=== PATIENT | male | born 1975 | race Caucasian/White ===

== ENCOUNTER 2017-08-27 16:24 | Emergency (ER) | payer BC ==
--- NOTE | 2017-08-27 17:17 | EDM.PDOC ---
ED HPI GENERAL MEDICAL PROBLEM - General Chief Complaint: Respiratory Problem Stated Complaint: PT HAS DIFFICULTY BREATHING Time Seen by Provider: 08/27/17 17:15 Source of Information: Reports: Patient History Limitations: Reports: No Limitations - History of Present Illness INITIAL COMMENTS - FREE TEXT/NARRATIVE: HISTORY AND PHYSICAL: []42-year-old male presenting with concerns over a slight cough difficulty breathing History of Present Illness: []Patient has been having difficulty for the last week and a half. Symptoms have worsened and he presented to the emergency department today History of walking pneumonia 4 years ago. He quit smoking after this occurrence Review of Systems: As per history of present illness and below otherwise all systems reviewed and negative. Past medical history: As per history of present illness and as reviewed below otherwise noncontributory. Surgical history: As per history of present illness and as reviewed below otherwise noncontributory. Social history: No reported history of drug or alcohol abuse. Family history: As per history of present illness and as reviewed below otherwise noncontributory. Physical exam: Alert and oriented male. Follows directions well. Answering questions in full sentences without any shortness of breath HEENT: Atraumatic, normocehpalic, pupils reactive, negative for conjunctival pallor or scleral icterus, mucous membranes moist, throat clear, neck supple, nontender, trachea midline. Lungs: Clear to auscultation, breath sounds equal bilaterally, chest non tender. Heart: S1S2, regular, negative for clicks, rubs, or JVD. Abdomen: Soft, nondistended, nontender. Negative for masses or hepatossplenmegaly. Negative for costovertebral tenderness. Pelvis: Stable nontender. Genitourinary: Deferred. Rectal: Deferred Extremities: Atraumatic, negative for cords or calf pain. Neurovascular unremarkable. Neuro: Awake, alert, oriented. Cranial nerves II through XII unremarkable. Cerebellum unremarkable. Motor and sensory unremarkable throughout. Exam nonfocal. Improved air exchange after nebulizer treatment given Diagnostics: [CBC CMP chest x-ray] Therapeutics: [DuoNeb] Impression: [Shortness of breath] Plan: [Discharged to home Pro-air inhaler ] Definitive disposition and diagnosis as appropriate pending reevaluation and review of above. body aches Pain Score (Numeric/FACES): 3 - Related Data Allergies Allergy/AdvReac Type Severity Reaction Status Date / Time Penicillins Allergy Other Verified 08/27/17 17:05 Sulfa (Sulfonamide Allergy Other Verified 08/27/17 17:05 Antibiotics) Home Meds: Home Meds Albuterol [Ventolin HFA] 1 gm INH Q4H #1 inhaler 08/27/17 [Rx] Past Medical History - Infectious Disease History Infectious Disease History: Reports: Chicken Pox - Past Surgical History GI Surgical History: Reports: EGD Social & Family History - Family History Family Medical History: Noncontributory - Tobacco Use Smoking Status *Q: Never Smoker Years of Tobacco use: 10 Second Hand Smoke Exposure: No - Caffeine Use Caffeine Use: Reports: Coffee - Alcohol Use Days Per Week of Alcohol Use: 2 Number of Drinks Per Day: 4 Total Drinks Per Week: 8 - Recreational Drug Use Recreational Drug Use: No ED ROS GENERAL - Review of Systems Review Of Systems: ROS reveals no pertinent complaints other than HPI. ED EXAM, GENERAL - Physical Exam Exam: See Below (See dictation) Course - Vital Signs Last Recorded V/S: Last Vital Signs Temp 37.1 C 08/27/17 17:02 Pulse 85 08/27/17 17:02 Resp 16 08/27/17 17:02 BP 123/81 08/27/17 17:02 Pulse Ox 94 L 08/27/17 17:02 - Orders/Labs/Meds Orders: Active Orders 24 hr Category Date Time Status RT Aerosol Therapy [RC] ASDIRECTED Care 08/27/17 17:40 Active Chest 2V [CR] Stat Exams 08/27/17 17:15 Taken Labs: Laboratory Tests 08/27/17 08/27/17 Range/Units 17:57 17:57 WBC 5.85 (4.0-11.0) K/uL RBC 5.25 (4.50-5.90) M/uL Hgb 16.4 (13.0-17.0) g/dL Hct 44.5 (38.0-50.0) % MCV 84.8 (80.0-98.0) fL MCH 31.2 (27.0-32.0) pg MCHC 36.9 (31.0-37.0) g/dL RDW Std Deviation 36.8 (28.0-62.0) fl RDW Coeff of Sumit 12 (11.0-15.0) % Plt Count 180 (150-400) K/uL MPV 11.00 (7.40-12.00) fL Neut % (Auto) 47.7 L (48.0-80.0) % Lymph % (Auto) 33.2 (16.0-40.0) % [place] % (Auto) 15.7 H (0.0-15.0) % Eos % (Auto) 2.7 (0.0-7.0) % Baso % (Auto) 0.7 (0.0-1.5) % Neut # (Auto) 2.8 (1.4-5.7) K/uL Lymph # (Auto) 1.9 (0.6-2.4) K/uL [place] # (Auto) 0.9 H (0.0-0.8) K/uL Eos # (Auto) 0.2 (0.0-0.7) K/uL Baso # (Auto) 0.0 (0.0-0.1) K/uL Nucleated RBC % 0.0 /100WBC Nucleated RBCs # 0 K/uL Sodium 139 (136-146) mmol/L Potassium 3.7 (3.5-5.1) mmol/L Chloride 104 (98-110) mmol/L Carbon Dioxide 24 (21-31) mmol/L BUN 16 (6.0-23.0) mg/dL Creatinine 1.0 (0.6-1.5) mg/dL Est Cr Clr Drug Dosing 104.58 mL/min Estimated GFR (MDRD) > 60.0 ml/min Glucose 91 (60-110) mg/dL Calcium 9.4 (8.8-10.8) mg/dL Total Bilirubin 0.4 (0.1-1.5) mg/dL AST 23 (5-40) IU/L ALT 40 (8-54) IU/L Alkaline Phosphatase 90 (40-150) Total Protein 7.4 (6.0-8.0) g/dL Albumin 4.7 (3.5-5.0) g/dL Globulin 2.7 (2.0-3.5) g/dL Albumin/Globulin Ratio 1.7 (1.3-2.8) Meds: Medications Discontinued Medications Generic Name Dose Route Start Last Admin Trade Name Freq PRN Reason Stop Dose Admin Albuterol/Ipratropium 3 ml 08/27/17 17:39 08/27/17 17:47 Duoneb 3.0-0.5 Mg/3 Ml NEB 08/27/17 17:40 3 ml ONETIME ONE Administration Departure - Departure Time of Disposition: 18:48 Disposition: Home, Self-Care 01 Condition: Good Clinical Impression: Mild shortness of breath - Discharge Information Prescriptions: Albuterol [Ventolin HFA] 1 gm INH Q4H #1 inhaler Referrals: PCP,None [Primary Care Provider] - Forms: ED Department Discharge Additional Instructions: The following information is given to patients seen in the emergency department who are being discharged to home. This information is to outline your options for follow-up care. We provide all patients seen in our emergency department with a follow-up referral. The need for follow-up, as well as the timing and circumstances, are variable depending upon the specifics of your emergency department visit. If you don't have a primary care physician on staff, we will provide you with a referral. We always advise you to contact your personal physician following an emergency department visit to inform them of the circumstance of the visit and for follow-up with them and/or the need for any referrals to a consulting specialist. The emergency department will also refer you to a specialist when appropriate. This referral assures that you have the opportunity for followup care with a specialist. All of these measure are taken in an effort to provide you with optimal care, which includes your followup. Under all circumstances we always encourage you to contact your private physician who remains a resource for coordinating your care. When calling for followup care, please make the office aware that this follow-up is from your recent emergency room visit. If for any reason you are refused follow-up, please contact the [facility] emergency department at and asked to speak to the emergency department charge nurse. Follow-up with your primary care provider Worsening of symptoms again return to the emergency room for reevaluation - My Orders Last 24 Hours: My Active Orders 08/27/17 17:15 Chest 2V [CR] Stat 08/27/17 17:40 RT Aerosol Therapy [RC] ASDIRECTED - Assessment/Plan Last 24 Hours: My Active Orders 08/27/17 17:15 Chest 2V [CR] Stat 08/27/17 17:40 RT Aerosol Therapy [RC] ASDIRECTED
[2017-08-27] MEDS ORDERED: Albuterol/Ipratropium 3.0-0.5 MG/3 ML Neb Soln NEB ONE (17:39)
[2017-08-27 18:33] LABS: CHLORIDE,CL 104 mmol/L (98-110); SODIUM,NA 139 mmol/L (136-146)
[2017-08-27 18:55] VITALS: BP 135/81
--- NOTE | 2017-08-28 10:12 | CR ---
EXAM DATE: 08/27/17 PATIENT'S AGE: 42 Patient: KIRK FARRAR Facility: [place], [place] Site . Site : [id number] Study: XRay Chest [id number]/[id number] 5:38:38 PM Ordering Physician: Doctor Castro Final Report: INDICATION: wheezing, coughed up blood CHEST, PA AND LATERAL Upright PA and lateral radiographs of the chest were performed. Comparison: 10/15/2013. The lungs appear clear and there are no pleural effusions. Heart size and pulmonary vasculature appear normal. Visualized bones show no significant findings. IMPRESSION: No acute intrathoracic abnormality identified. STEPHANI ASHFORD MD [employer] Dictated by: Josef Ashford MD @ 08/27/2017 18:19:40 (Electronic Signature) Report Signed by Proxy. [facility]
== END 2017-08-27 18:55 | disposition home or self-care (01) ==
LOC: MW.ED 16:24
DX: R06.02 Shortness of breath (principal); Z88.0 Allergy status to penicillin; Z88.2 Allergy status to sulfonamides; Z87.891 Personal history of nicotine dependence
CPT/HCPCS: 36415; 71020; 71020-26; 80053; 85025; 94640; 99282; 99283